=== PATIENT | female | born 1970 ===

== ENCOUNTER 2016-11-29 01:32 | Inpatient (IN) ==
--- NOTE | 2016-11-29 02:24 | Emergency Department Note ---
IRyder Hilary, am scribing for, and in the presence of, Sakshi Zheng DO 02: 20. INorm Debra, DO, personally performed the services described in this documentation, ascribed by Sabra Soler in my presence, and it is both accurate and complete . Arrival - Arrival Chief Complaint: Abdominal / Flank Pain Stated Complaint: [facility] ED Nursing Triage Note: C/O Feeling bloated since surgery- worsening tonight. Pt was seen at [facility] and sent for further evaluation. Pt reports that she had a cholecystectomy performed by Dr. Hinojosa- Pt reports that she had a scheduled appointment with him yesterday for follow up, but she missed it. Denies constipation/urinary s/s/fever. Last BM yesterday- normal Mode of Arrival: Wheelchair Limitations: No Limitations Source: Patient, RN Notes Reviewed Time Seen by Provider: 11/29/16 01:53 - History of Present Illness HPI Narrative: Pt is a 46 y/o female transferred from the [facility] for c/o bloating since cholecystectomy performed by Dr Hinojosa, but states it has worsened tonight. She states that she had a scheduled appointment with Dr. Hinojosa yesterday but she "forgot about it". Patient confirms slight tenderness and nausea yesterday but denies vomiting or a fever. No other complaints or problems stated in the ED. Onset (ago): day(s) Consistency: constant Date of Last Menstrual Period: 3 weeks ago Allergies/Adverse Reactions: Allergies Allergy/AdvReac Type Severity Reaction Status Date / Time No Known Allergies Allergy Verified 11/09/16 15:25 Home Medications: Home Medications Medication Instructions Recorded Confirmed Type No Known Home Medications [No 11/29/16 11/29/16 History Known Home Medications] Review of System - Review of System 12 point system: reviewed and no additional remarkable complaints except as stated - Review of System Constitutional: Absent: fever Gastrointestinal: Present: abdominal pain (bloating), nausea. Absent: vomiting , constipation Medical,Surgical,& Family Hx - Medical History Endocrine: History of: Diabetes Mellitus (NIDDM) (Non compliant) - Surgical History Reproductive Surgeries: Surgical HX of;: Section - Family History Family History: Reports;: Family Diabetes - Social History Smoking Status: Current every day smoker Frequency of Alcohol Use: Occasionally Type of Drug Use: None Exam Vital Signs: Vital Signs Temperature 98.2 F 11/29/16 02:13 Pulse Rate 96 H 11/29/16 02:13 Respiratory Rate 18 11/29/16 02:13 Blood Pressure 116/71 11/29/16 02:13 O2 Sat by Pulse Oximetry 97 11/29/16 01:39 - General General appearance: alert, in no apparent distress - Head Head exam: Present: atraumatic, normocephalic - Eye Eye exam: Present: normal appearance, PERRL - ENT ENT exam: Present: mucous membranes moist, TM's normal bilaterally. Absent: mucous membranes dry - Neck Neck exam: Present: full ROM, trachea midline. Absent: tenderness - Chest Chest inspection: Present: symmetric chest wall rise. Absent: tenderness - Respiratory Respiratory exam: Present: normal lung sounds bilaterally. Absent: respiratory distress - Cardiovascular Cardiovascular exam: Present: regular rate, normal rhythm, normal heart sounds. Absent: murmur, rubs, gallop - Abdominal Exam Abdominal exam: Present: soft, distention (mild distention), tenderness (to palpation diffusely) - Extremities Exam Extremities exam: Present: full ROM. Absent: tenderness - Back Exam Back exam: Present: full ROM. Absent: tenderness - Neurological Exam Neurological exam: Present: alert, oriented X3, CN II-XII intact. Absent: motor sensory deficit - Psychiatric Psychiatric exam: Present: normal affect, normal mood - Skin Skin exam: Present: warm, dry, intact, normal color. Absent: rash Course Course Narrative: spoke with Dr Lowe who will admit pt. Disposition Clinical Impression: Ascites Case discussed with: patient, patient's family Disposition: Still a Patient Condition: Stable Time of Disposition: 02:28
[2016-11-29] MEDS ORDERED: DEXTROSE 50% 25 GM/50 ML VIAL IV PRN (02:59)
[2016-11-29] MEDS ORDERED: ONDANSETRON 4 MG/2 ML VIAL IV PRN (02:59)
[2016-11-29] MEDS ORDERED: GLUCAGON 1 MG VIAL IM PRN (02:59)
--- NOTE | 2016-11-29 03:24 | Hospitalist History & Physical ---
Assessment and Plan (1) Cirrhosis Status: Acute Current Visit: Yes (2) Ascites Status: Acute Current Visit: Yes (3) Abdominal pain Status: Acute Assessment and plan: I suspect the cirrhosis is secondary to alcohol consumption. We will admit patient our service. Going to get ultrasound and paracentesis of ascites. Will perform some studies on the peritoneal fluid. We will get Dr. Hinojosa see the patient while she is here. She says she failed to follow-up with him status post surgery. We will also get Dr. Negrete to see her while she is here. Repeat labs in the morning and adjust plans as appropriate. During patient's recent hospitalization she had a hepatitis panel checked Current Visit: No History of Present Illness Chief complaint: Abdominal swelling History of present illness: Ms. Hein is a 46 year old female with past medical history significant for cirrhosis presents to our ER status post transfer from [facility]. Patient has recently had a cholecystectomy. Ever since then she has had increased abdominal swelling. Patient went to [facility] today and they recommended that she be transferred to our hospital for further evaluation. I was consulted to admit the patient. Patient reports that she was told that she had cirrhosis 10 years ago. Apparently when she went back to the hospital this at all evidence of her having cirrhosis was gone. She continued to drink alcohol. She she will not qualify the amount of alcohol but says that she does not drink every day. I am admitting the patient today for a paracentesis and a GI evaluation. Home Medications Medication Instructions Recorded Confirmed Type No Known Home Medications [No 11/29/16 11/29/16 History Known Home Medications] Allergies Allergy/AdvReac Type Severity Reaction Status Date / Time No Known Allergies Allergy Verified 11/09/16 15:25 Medical,Surgical,& Family Hx - Medical History Endocrine: History of: Diabetes Mellitus (NIDDM) (Non compliant) - Surgical History Reproductive Surgeries: Surgical HX of;: Section - Family History Family History: Reports;: Family Diabetes - Social History Smoking Status: Current every day smoker Frequency of Alcohol Use: Frequently Type of Drug Use: None 12 point system: reviewed and no additional remarkable complaints except as stated Exam - Constitutional Vitals: Period Temp Pulse Resp BP Sys/Gaines Pulse Ox Last 24 Hr 98.2 F-98.2 F 96-96 18-18 116-116/71-71 97 - General General appearance: alert, in no apparent distress - Head Head exam: Present: atraumatic, normocephalic - Eye Eye exam: Present: normal appearance, PERRL - ENT ENT exam: Present: mucous membranes moist, TM's normal bilaterally. Absent: mucous membranes dry - Neck Neck exam: Present: full ROM, trachea midline. Absent: tenderness - Chest Chest inspection: Present: symmetric chest wall rise. Absent: tenderness - Respiratory Respiratory exam: Present: normal lung sounds bilaterally. Absent: respiratory distress - Cardiovascular Cardiovascular exam: Present: regular rate, normal rhythm, normal heart sounds. Absent: murmur, rubs, gallop - Abdominal Exam Abdominal exam: Present: soft, distention (mild distention), tenderness (to palpation diffusely) - Extremities Exam Extremities exam: Present: full ROM. Absent: tenderness - Back Exam Back exam: Present: full ROM. Absent: tenderness - Neurological Exam Neurological exam: Present: alert, oriented X3, CN II-XII intact. Absent: motor sensory deficit - Psychiatric Psychiatric exam: Present: normal affect, normal mood - Skin Skin exam: Present: warm, dry, intact, normal color. Absent: rash Results - Labs Labs: Labs from outside facility revealed total protein 6.2 calcium 8.2 creatinine 0.8 BUN 14 sodium 145 potassium 3.9 chloride 111 bicarb 27.2 albumin 2.4 total bili 0.3 alk phos 109 SGOT 45 SGPT 36 glucose 191 white count 5.8 hemoglobin 12.3 hematocrit 38.[address] scan of the outside facility showed recent cholecystectomy mild diffuse nodular appearance of the liver suggestive of underlying cirrhosis large diffuse ascites likely on the basis of portal hypertension
[2016-11-29 06:58] LABS: Basophils % 0.6 % (0.0-0.8); Eosinophils # 0.2 10*3/uL (0.0-0.87); Eosinophils % 3.5 % (0.00-10.9); Hematocrit 35.3 VOL% (35.7-47.0); Hemoglobin 11.2 GM/DL (12.0-16.0); Immature Granulocytes % 0.2 %; Immature Granulocytes Absolute 0.01 #; Lymphocytes # 1.2 10*3/uL (1.4-4.0); Mean Corpuscular HGB Conc 31.7 GM/DL (32-36); Mean Corpuscular Hemoglobin 28 PG (27-34); Mean Corpuscular Volume 87.8 FL (87-102); Mean Platelet Volume 9.7 FL (9.6-12.0); Monocytes # 0.7 10*3/uL (0.11-0.8); Monocytes % 12.2 % (1.7-12.7); Neutrophils # 3.3 10*3/uL (1.4-7.4); Neutrophils % 60.5 % (38.7-73.9); Platelet Count 220 T/CUMM (130-400); Red Blood Count 4.02 MC/CUMM (3.8-5.5); Red Cell Distribution Width 17.4 % (9.3-17.3); White Blood Count 5.4 T/CUMM (4-12)
[2016-11-29 07:29] LABS: Albumin 2.4 G/DL (3.4-5.0); Bilirubin,Total 0.9 MG/DL (0.2-1.0); Calcium 8.1 MG/DL (8.5-10.1); Osmolality,Calculated 296.1 MOS/KG (273-304); Total Protein 5.4 G/DL (6.4-8.3)
--- NOTE | 2016-11-29 09:19 | Gastrointestinal Consult Note ---
Assessment and Plan (1) Abdominal pain Status: Acute Assessment and plan: 11/29-2-3 week history of abdominal discomfort/distention following lap bonita on 11/10. Findings noted of nodular liver at that time. Presents now with ascites. CT findings noted. For US paracentesis today and fluid analysis. Plan and addendum to follow by Dr Negrete Current Visit: No History of Present Illness Chief complaint: Abd distention History of present illness: Ms. Hein is a 46 year old female who presented to the hospital after transfer from the [facility] for worsening abdominal distention. Pt states she underwent a laparoscopic cholecystectomy with repair of serosal injury to sigmoid colon on 11/[address] Hinojosa at our facility. She was discharged home the following day and states that since the surgery she has had an increase in abdominal distention and discomfort. She states that she has had some mild shortness of breath as well associated with the distention. Pt was to see Dr Hinojosa for a followup on yesterday however went to [facility] instead. She has some mild complaints of abdominal tenderness and nausea but she denies any vomiting. She denies any changes in her stools, weight loss, fever, chills or night sweats. She denies any prior history of liver disease, excessive alcohol use. She has two small homemade tattoos from when she was a teenager. States her LFTS have never been elevated that she is aware of. She reports she hasnt drank any alcohol since Sep and when she did she only had a beer or two once of twice a week x 10 years. Last month she had a hepatitis panel and SHAY screen done which were negative. She has had a colonoscope in the past by Dr Caban in 2007 for family history of colon cancer in her mother. 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 She had a CT without contrast at [facility] on yesterday with findings noted of mildly diffuse nodular hepatic findings and large diffuse ascites. She is for paracentesis today. Home Medications Medication Instructions Recorded Confirmed Type No Known Home Medications [No 11/29/16 11/29/16 History Known Home Medications] Allergies Allergy/AdvReac Type Severity Reaction Status Date / Time No Known Allergies Allergy Verified 11/09/16 15:25 Medical,Surgical,& Family Hx - Medical History Endocrine: History of: Diabetes Mellitus (NIDDM) (Non compliant) - Surgical History Abdominal Surgeries: Surgical HX of: Appendectomy, Cholecystectomy Reproductive Surgeries: Surgical HX of;: Section, Tubal Ligation Orthopedic Surgeries: Surgical HX of;: Spinal Surgery (back surgery with 8 screws and rods placed) - Family History Family History: Reports;: Family Cancer (lung cancer- aunt), Family Diabetes ( mom, sister, brother), Family Hypertension (mom), Family Stroke (brother) - Social History Smoking Status: Current every day smoker Frequency of Alcohol Use: Frequently Type of Drug Use: None 12 point system: reviewed and no additional remarkable complaints except as stated - Constitutional Constitutional: Present: as per HPI - EENT Eyes: Present: as per HPI Ears: Present: as per HPI Nose, mouth and throat: Present: as per HPI - Cardiovascular Cardiovascular: Present: as per HPI - Respiratory Respiratory: Present: as per HPI - Gastrointestinal Gastrointestinal: Present: as per HPI, abdominal pain, bloating, nausea - Genitourinary Genitourinary: Present: as per HPI - Musculoskeletal Musculoskeletal: Present: as per HPI - Neurological Neurological: Present: as per HPI - Psychiatric Psychiatric: Present: as per HPI - Endocrine Endocrine: Present: as per HPI - Hematologic/Lymphatic Hematologic/Lymphatic: Present: as per HPI Exam - Constitutional Vitals: Period Temp Pulse Resp BP Sys/Gaines Pulse Ox Last 24 Hr 98.4 F-98.4 F 85-91 14-22 115-130/75-79 98-98 General appearance: normal weight, no acute distress - Head Head exam: Present: normal inspection, normocephalic - Eye Eye exam: Present: other (lids and conjunctiva unremarkable). Absent: scleral icterus - ENT ENT exam: Present: normal exam, normal oropharynx - Neck Neck exam: Present: normal inspection - Respiratory Respiratory exam: Present: clear to auscultation bilaterally. Absent: rales, rhonchi, wheezes - Cardiovascular Cardiovascular exam: Present: regular rate and rhythm. Absent: diastolic murmur , JVD, systolic murmur - GI/Abdominal GI/Abdominal exam: Present: normal bowel sounds, soft. Absent: ascites, distended, mass, organomegaly, tenderness - Extremities Exam Extremities exam: Present: normal inspection, full ROM - Back Exam Back exam: Present: normal inspection - Neurological Exam Neurological exam: Present: alert, oriented X3 - Psychiatric Psychiatric exam: Present: normal affect, normal mood - Skin Skin exam: Present: normal color, warm, dry Results - Labs CBC & BMP: 11/29/16 06:46 11/29/16 06:46 Lab Results: I have reviewed the past 24 hour labs
[2016-11-29 09:25] LABS: PT Patient Result 10.4 SECS
--- NOTE | 2016-11-29 11:08 | General Surgery Consult Note ---
Assessment and Plan (1) Ascites Status: Acute Assessment and plan: The patient is scheduled for paracentesis today. I think it is low likelihood that this is bile in the abdomen because she would have much more tenderness and her bilirubin would probably be abnormal. I will follow-up the results of the paracentesis and see with the quality of this fluid is but if it is not bilious I think we can rule out a bile leak. In regards to her air bubble in her bile duct on the recent cholangiogram, since her bilirubin is normal I think that this is unlikely to need any further investigation. I will continue to follow for now. Current Visit: Yes History of Present Illness Chief complaint: Abdominal fullness History of present illness: Ms. Hein is a 46 year old female who was recently admitted with biliary dyskinesia/chronic cholecystitis and symptomatic cholelithiasis which was treated with laparoscopic cholecystectomy with intraoperative cholangiogram about 2-3 weeks ago. She had a air bubble on her cholangiogram but I reviewed her films with Dr. Negrete at that time we would just monitor that for now. She was readmitted and her LFTs actually demonstrated a normal bilirubin but a CT scan from outside hospital showed massive ascites. She did have intraoperative findings of macronodular cirrhosis at the time of her surgery. Home Medications Medication Instructions Recorded Confirmed Type No Known Home Medications [No 11/29/16 11/29/16 History Known Home Medications] Allergies Allergy/AdvReac Type Severity Reaction Status Date / Time No Known Allergies Allergy Verified 11/09/16 15:25 Medical,Surgical,& Family Hx - Medical History Endocrine: History of: Diabetes Mellitus (NIDDM) (Non compliant) - Surgical History Abdominal Surgeries: Surgical HX of: Appendectomy, Cholecystectomy Reproductive Surgeries: Surgical HX of;: Section, Tubal Ligation Orthopedic Surgeries: Surgical HX of;: Spinal Surgery (back surgery with 8 screws and rods placed) - Family History Family History: Reports;: Family Cancer (lung cancer- aunt), Family Diabetes ( mom, sister, brother), Family Hypertension (mom), Family Stroke (brother) - Social History Smoking Status: Current every day smoker Frequency of Alcohol Use: Frequently Type of Drug Use: None - Constitutional Constitutional: Present: as per HPI - EENT Nose, mouth and throat: Present: as per HPI - Cardiovascular Cardiovascular: Present: as per HPI - Respiratory Respiratory: Present: as per HPI - Gastrointestinal Gastrointestinal: Present: as per HPI - Genitourinary Genitourinary: Present: as per HPI - Musculoskeletal Musculoskeletal: Present: as per HPI - Neurological Neurological: Present: as per HPI - Endocrine Endocrine: Present: as per HPI Hematologic/Lymphatic: Present: as per HPI Exam - Constitutional Vitals: Period Temp Pulse Resp BP Sys/Gaines Pulse Ox Last 24 Hr 98.4 F-98.4 F 85-91 14-22 115-130/75-79 98-98 General appearance: no acute distress, over weight - Head Head exam: Present: normal inspection, normocephalic - Eye Eye exam: Present: EOMI Pupils: Present: LYSSA - ENT ENT exam: Present: normal exam Mouth exam: Present: normal external inspection, normal voice - Neck Neck exam: Present: normal inspection, trachea midline - Respiratory Respiratory exam: Present: clear to auscultation bilaterally. Absent: accessory muscle use, chest wall tenderness - Cardiovascular Cardiovascular exam: Present: RRR. Absent: systolic murmur, tachycardia - GI/Abdominal GI/Abdominal exam: Present: ascites, soft, other (The incisions are clean and dry with no infection). Absent: tenderness, rebound - Extremities Exam Extremities exam: Present: normal inspection, normal capillary refill - Back Exam Back exam: Present: normal inspection - Neurological Exam Neurological exam: Present: alert, oriented X3 Speech: Present: normal - Skin Skin exam: Present: normal color, warm Results - Labs CBC & BMP: 11/29/16 06:46 11/29/16 06:46 - Diagnostic Findings Procedure: CT Abdomen and Pelvis: image reviewed by me, report reviewed by me
[2016-11-29] MEDS ORDERED: LORazepam 1 MG TABLET PO PRN (11:34)
--- NOTE | 2016-11-29 11:41 | Hospitalist Progress Note ---
Assessment and Plan (1) Diabetes Status: Acute Assessment and plan: hemoglobin A1c, insulin sliding scale Current Visit: Yes (2) Ascites Status: Acute Assessment and plan: us guided paracentesis today, also added cytology to testing Current Visit: Yes Hospitalist: Subjective Interval history: Patient has a history of alcohol abuse. She reports she is no longer drinking. Will get hepatitis studies. Dr. Negrete will see her this evening. Ultrasound guided paracentesis today by interventional radiology. Monitor for DTs Exam - Constitutional Vitals: Period Temp Pulse Resp BP Sys/Gaines Pulse Ox Last 24 Hr 98.4 F-98.4 F 85-91 14-22 115-130/75-79 98-98 Exam: Heart Rate-[RRR] Lungs-[CTAB] GI-[+bs soft, ascites ] Ext-[no edema] Neuro [Motor 5/5], [alert and oriented times 3] psych [normal mood and affect] General [no acute distress] Results - Labs CBC & BMP: 11/29/16 06:46 11/29/16 06:46 Lab Results: I have reviewed the past 24 hour labs
[2016-11-29 13:17] LABS: Hepatitis A Ab IgM Quant 0.13 Index; Hepatitis A Ab IgM Result Negative (Negative); Hepatitis B Core IgM Result Negative (Negative)
[2016-11-29] MEDS: INSULIN REGULAR 100 UNIT/ML SUBCUT SCH ×4 (15:46→21:33)
[2016-11-29] MEDS: FOLIC ACID 1 MG TABLET PO SCH (15:48)
[2016-11-29] MEDS: POTASSIUM CHLORIDE 20 MEQ TABLET PO SCH (15:48)
[2016-11-29] MEDS: THIAMINE 100 MG TABLET PO SCH (15:48)
[2016-11-29] MEDS: FUROSEMIDE 20 MG/2 ML VIAL IV SCH (15:49)
[2016-11-29] MEDS: PANTOPRAZOLE 40 MG TABLET PO SCH (15:49)
[2016-11-29 16:17] LABS: Lymphocytes,Pleural Fluid 86 %; Monocytes,Pleural Fluid 11 %; Neutrophils,Pleural Fluid 3 %; RBC,Pleural Fluid 1635 T/CUMM
--- NOTE | 2016-11-29 17:25 | Post Interventional Procedure ---
Pre-op diagnosis: cirrhosis and ascites Post-op diagnosis: same Procedure: u/s guided paracentesis Contrast: none Flouroscopy: none Radiologist: Monty Watson Anesthesia: local Specimens: other (peritoneal fluid sent for studies) Estimated blood loss: none Complications: none Condition: stable Description/Findings: 3.3 L of milky white-serous removed via a right lower quadrant approach. Assessment and Plan - Time spent with patient Time spent with patient: Less than 30 minutes
--- NOTE | 2016-11-29 17:29 | Ultrasound Report ---
Exam: Ultrasound-guided paracentesis Clinical history: ascites. Physician: Dr. Watson. Procedure: Informed consent was obtained prior to procedure. A formal timeout was performed. Maximum sterile barrier technique was used. The right lower quadrant was prepped and draped in sterile fashion. Under sonographic guidance, a 6 Sinhala safety centesis catheter and needle were advanced into the ascites using trocar technique. A captured sonographic image documents needle position. The needle was removed. Through the catheter, we obtained a total of 3300 cc of milky ascites. No additional fluid could be obtained. Therefore, the catheter was removed. A bandage was placed at the puncture site. The patient tolerated the procedure well. Complications: None. Estimated blood loss: Less than 5 mL. Impression: Technically successful ultrasound guided paracentesis. PROCEDURE INTERPRETED AT [facility] DEPARTMENT OF RADIOLOGY Final Report Signed by: Monty Watson
[2016-11-30 06:40] LABS: Alanine Aminotransferase 25 U/L (13-56); Albumin 2.2 G/DL (3.4-5.0); Alkaline Phosphatase 97 U/L (45-117); Aspartate Amino Transferase 37 U/L (0-37); Bilirubin,Total < 0.39 MG/DL (0.2-1.0); Blood Urea Nitrogen 14 MG/DL (7-18); Calcium 7.9 MG/DL (8.5-10.1); Glucose 126 MG/DL (74-106); Osmolality,Calculated 292.6 MOS/KG (273-304); Potassium 4.3 MMOL/L (3.5-5.1); Sodium 146 MMOL/L (136-145); Total Protein 5.4 G/DL (6.4-8.3)
[2016-11-30 06:41] LABS: Hepatitis B Core IgM Quant 0.17 Index; Hepatitis C Virus Ab Quant 2.29 Index; Hepatitis C Virus Ab Result Positive (Negative)
--- NOTE | 2016-11-30 08:50 | Gastrointestinal Progress Note ---
Assessment and Plan (1) Abdominal pain Status: Acute Assessment and plan: 11/30-post paracentesis with further fluid analysis pending. No abdominal pain. Afebrile. Plan an addendum to followed by Dr. Negrete. 11/29-2-3 week history of abdominal discomfort/distention following lap bonita on 11/10. Findings noted of nodular liver at that time. Presents now with ascites. CT findings noted. For US paracentesis today and fluid analysis. Plan and addendum to follow by Dr Negrete Current Visit: No Gastroenterology - PN: Subj Interval history: CC: Ascites, abdominal pain Patient seen awake and alert lying in bed. She denies any abdominal pain at this time and states she has a good bit of relief following her paracentesis on yesterday. Paracentesis results noted and further testing pending at this time. She denies any nausea or vomiting. She is afebrile. Abdomen is soft, nontender. Dr. Hinojosa is following at present time. Tolerating diet well. ROS: Denies shortness of breath or chest pain Exam (Progress Note) - Constitutional Vitals: Period Temp Pulse Resp BP Sys/Gaines Pulse Ox Last 24 Hr 97.8 F-99.1 F 76-95 15-18 107-135/69-83 95-97 General appearance: normal weight, no acute distress - Head Head exam: Present: normal inspection, normocephalic - Eye Eye exam: Present: other (Lids and conjunctivae unremarked). Absent: scleral icterus - ENT ENT exam: Present: normal exam, normal oropharynx - Neck Neck exam: Present: normal inspection - Respiratory Respiratory exam: Present: clear to auscultation bilaterally. Absent: rales, rhonchi, wheezes - Cardiovascular Cardiovascular exam: Present: regular rate and rhythm. Absent: diastolic murmur , JVD, systolic murmur - GI/Abdominal GI/Abdominal exam: Present: normal bowel sounds, soft. Absent: ascites, distended, mass, organomegaly, tenderness - Extremities Exam Extremities exam: Present: normal inspection, full ROM - Back Exam Back exam: Present: normal inspection - Neurological Exam Neurological exam: Present: alert, oriented X3 - Psychiatric Psychiatric exam: Present: normal affect, normal mood - Skin Skin exam: Present: normal color, warm, dry Results - Labs CBC & BMP: 11/29/16 06:46 11/30/16 04:46 Lab Results: I have reviewed the past 24 hour labs
[2016-11-30 09:13] LABS: Hepatitis B Surface Ag Quant 0.69 Index; Hepatitis B Surface Ag Result Negative (Negative)
[2016-11-30] MEDS: FUROSEMIDE 20 MG/2 ML VIAL IV SCH (09:14)
[2016-11-30] MEDS: THIAMINE 100 MG TABLET PO SCH (09:14)
[2016-11-30] MEDS: PANTOPRAZOLE 40 MG TABLET PO SCH (09:15)
[2016-11-30] MEDS: FOLIC ACID 1 MG TABLET PO SCH (09:15)
[2016-11-30] MEDS: POTASSIUM CHLORIDE 20 MEQ TABLET PO SCH (09:15)
[2016-11-30] MEDS: INSULIN REGULAR 100 UNIT/ML SUBCUT SCH ×2 (09:16→12:15)
--- NOTE | 2016-11-30 10:36 | Discharge Summary ---
Hospital Course - Hospital Course Hospital Course: 46-year-old [place] female with a history of diabetes presents with ascites following a lap bonita procedure. Paracentesis revealed patient had elevated WBCs but was also a bloody tap. Patient still qualifies for spontaneous bacterial peritonitis. She was given one dose of Rocephin IV and 10 more days of cipro [address] Hinojosa had done a lap bonita on her and noted that her liver did look at abnormal at that time. Patient has a history of alcoholism which is in the remote past. She does however have hepatitis C which needs to be aggressively treated. Follow up with Dr. Negrete or Liver specialist in [place]. - Time spent with patient Time with patient DS: Greater than 30 minutes (35 min) Diagnosis - Discharge Diagnosis (1) Diabetes Status: Acute (2) Ascites Status: Acute Discharge Plan - Discharge Data Disposition: Disch To Home/Self Care Condition at Discharge: Stable Discharge Diet: heart healthy Activity: resume usual activities as tolerated Hygiene: no restrictions Weight Bearing at Discharge: full weight bearing - Discharge Medications New Folic Acid Tab 1 mg PO DAILY tablet Furosemide Tab [Lasix Tab] 20 mg PO DAILY #30 tablet glyBURIDE [Glyburide] 5 mg PO DAILY #30 tablet Ciprofloxacin Tab [Cipro Tab] 500 mg PO BID #20 tablet Spironolactone 25 mg PO DAILY #30 tablet - Follow Up or Referral Follow Up: [place] [facility] [address] [facility] [Provider Group] - 2 Weeks Arthur Negrete MD [Physician] - 1 Week - Forms/Instructions Additional Discharge Instructions: use condoms for protection as hep C can be spread sexually or by blood. Dont discharge until seen by Dr. Negrete Exam - Constitutional Vitals: Period Temp Pulse Resp BP Sys/Gaines Pulse Ox Last 24 Hr 97.8 F-99.1 F 76-95 15-18 107-135/69-83 95-97 General appearance: no acute distress, over weight - Respiratory Respiratory exam: Present: clear to auscultation bilaterally. Absent: rhonchi, wheezes - Cardiovascular Cardiovascular exam: Present: regular rate and rhythm. Absent: systolic murmur - GI/Abdominal GI/Abdominal exam: Present: normal bowel sounds, soft. Absent: tenderness - Neurological Exam Neurological exam: Present: alert, oriented X3 Discharge Results Labs on day of discharge: Labs from last 24 hours 11/30/16 11/30/16 11/29/16 07:09 04:46 19:56 Sodium 146 H Potassium 4.3 Chloride 111 H Carbon Dioxide 27 Anion Gap 12.3 BUN 14 Creatinine 0.60 GFR Calculation 107 BUN/Creatinine Ratio 23.00 H Glucose 126 H POC Glucose 120 H 184 H Calculated Osmolality 292.6 Calcium 7.9 L Total Bilirubin < 0.39 AST 37 ALT 25 Alkaline Phosphatase 97 Total Protein 5.4 L Albumin 2.2 L Globulin 3.2 Albumin/Globulin Ratio 0.6 L Fluid Triglycerides Peritoneal Bilirubin Peritoneal Albumin Pleural WBC Pleural RBC Pleural Tot Cell Ct Pleural Neutrophils Pleural Lymphocytes Pleural Monocytes Pleural LDH Pleural Glucose 11/29/16 11/29/16 11/29/16 15:30 13:50 13:50 Sodium Potassium Chloride Carbon Dioxide Anion Gap BUN Creatinine GFR Calculation BUN/Creatinine Ratio Glucose POC Glucose 91 Calculated Osmolality Calcium Total Bilirubin AST ALT Alkaline Phosphatase Total Protein Albumin Globulin Albumin/Globulin Ratio Fluid Triglycerides 524 Peritoneal Bilirubin 0.3 Peritoneal Albumin Pleural WBC Pleural RBC Pleural Tot Cell Ct Pleural Neutrophils Pleural Lymphocytes Pleural Monocytes Pleural LDH 68 Pleural Glucose 11/29/16 11/29/16 11/29/16 13:50 13:50 13:50 Sodium Potassium Chloride Carbon Dioxide Anion Gap BUN Creatinine GFR Calculation BUN/Creatinine Ratio Glucose POC Glucose Calculated Osmolality Calcium Total Bilirubin AST ALT Alkaline Phosphatase Total Protein Albumin Globulin Albumin/Globulin Ratio Fluid Triglycerides Peritoneal Bilirubin Peritoneal Albumin 1.8 Pleural WBC 1545 Pleural RBC [address] 100 Pleural Neutrophils 3 Pleural Lymphocytes 86 Pleural Monocytes 11 Pleural LDH Pleural Glucose 132 DS: Provider Date of admission: 11/29/16 13:10 Primary care physician: Topher Mortensen MD Attending physician on admission: Divine Howe MD Discharging clinician: Divine Howe MD
[2016-11-30] MEDS ORDERED: cefTRIAXone 2,000 MG in SODIUM CHLORIDE 0.9% 100 ML IV SCH (11:30)
[2016-11-30 16:32] VITALS: BP 114/73
--- NOTE | 2016-11-30 16:34 | Event Note ---
The patient underwent a large-volume paracentesis yesterday and milky white fluid was described with elevated triglycerides. 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 Patient is nontoxic and appears to be doing well. I feel like this is probably more related to some other underlying cause as this has not been described after laparoscopic cholecystectomy and the patient does have cirrhosis and some other things going on. I will continue to follow the patient while she is here. I do not envision any surgical intervention will be necessary and will discuss this further with gastroenterology.
--- NOTE | 2016-12-01 12:16 | Pathology Report from [facility] ---
ACCESSION # : [id number] PATIENT NAME : Bernarda Hein ORDERING DR : Monty Watson MD CLINICAL HX: Ascites POST-OP DX: Same SPECIMEN INFO: Fluid,Peritoneal - 1000 ml's milky-yellow, cloudy CLASS: II CLASS COMMENTS: Benign mesothelial cells with marked acute and chronic inflammation.CELL BLOCK: Same. CLASS LEGEND: CLASS 0 Material inadequate for diagnosis because of (see comment) CLASS I Absence of atypical or abnormal cells CLASS II Atypical Cytology but no evidence of malignancy CLASS III Cytology suggestive of but not conclusive for malignancy CLASS IV Cytology strongly suggestive of malignancy CLASS V Cytology conclusive for malignancy SERVICE DATE: 11/30/2016 REPORT DATE: 12/01/2016 PATHOLOGIST: Niko Varghese M.D. [facility]
== END 2016-11-30 15:30 | disposition home or self-care (01) | DRG 814 ==
LOC: N.EDINP 01:32 → N.ED 01:32 → N.5E 03:36
PROVIDERS: ADMIT Internal Medicine; ATTEND Internal Medicine